=== PATIENT | female | born 1970 | race Hispanic/Latino ===

== ENCOUNTER 2022-03-16 10:21 | Emergency (ER) | payer OTHER ==
[~2022-03-16] VITALS: Ht 154.9 cm; Wt 68.0 kg
[2022-03-16] MEDS ORDERED: ACETAMINOPHEN 325 MG TAB PO ONE (11:00)
[2022-03-16] MEDS ORDERED: IBUPROFEN 200 MG TAB PO ONE (11:00)
[2022-03-16] MEDS ORDERED: IBUPROFEN200 MG PO (11:06)
[2022-03-16] MEDS ORDERED: ACETAMINOPHEN500 MG PO (11:06)
[2022-03-16] MEDS ORDERED: ACETAMINOPHEN 325 MG TAB ONE (11:48)
[2022-03-16] MEDS ORDERED: IBUPROFEN 600 MG TAB ONE (11:48)
== END 2022-03-16 13:32 | disposition home or self-care (01) ==
LOC: FSED 10:57
DX: M79.651 Pain in right thigh (principal); E11.9 Type 2 diabetes mellitus without complications
CPT/HCPCS: 93971; 99283